=== PATIENT | male | born 1985 | race Two or more races ===

== ENCOUNTER 2020-08-07 20:29 | Emergency (ER) | payer OTHER ==
[~2020-08-07] VITALS: Ht 190.5 cm; Wt 70.0 kg
--- NOTE | 2020-08-07 20:57 | PHYS DOC ---
Past History Past Medical History: No Pertinent History Past Surgical History: No Surgical History Alcohol Use: None General Adult EDM: Chief Complaint: HEADACHE HPI: HPI: 34-year-old male presents with left-sided headache. This started around 3 hours ago while he was riding his bike. He denies any falls or trauma. He took some ibuprofen and Benadryl but it did not help. He describes it as a pressure sensation behind his left eye. He does not have a change in vision. No change in hearing. He does not frequently get headaches and when he does ibuprofen or Tylenol usually makes it go away. He does not have any other symptoms other than some chills. He denies cough, fever, runny nose. Review of Systems: Review of Systems: Constitutional: Chills Eyes: Denies change in visual acuity HENT: Denies nasal congestion or sore throat Respiratory: Denies cough or shortness of breath Cardiovascular: Denies chest pain or edema GI: Denies abdominal pain, nausea, vomiting, bloody stools or diarrhea : Denies dysuria Musculoskeletal: Denies back pain or joint pain Integument: Denies rash Neurologic: Headache. Denies focal weakness or sensory changes Endocrine: Denies polyuria or polydipsia Lymphatic: Denies swollen glands Psychiatric: Denies depression or anxiety Heart Score: Risk Factors: Risk Factors: DM, Current or recent (<one month) smoker, HTN, HLP, family history of CAD, obesity. Risk Scores: Score 0 - 3: 2.5% MACE over next 6 weeks - Discharge Home Score 4 - 6: 20.3% MACE over next 6 weeks - Admit for Clinical Observation Score 7 - 10: 72.7% MACE over next 6 weeks - Early Invasive Strategies Current Medications: Current Meds: Current Medications Medications (Trade) Dose Ordered Sig/Brian Start Time Stop Time Status Last Admin Dose Admin Diphenhydramine HCl (Benadryl) 25 mg 1X ONCE 08/07/20 21:00 08/07/20 21:01 Ketorolac Tromethamine (Toradol 15mg Vial) 15 mg 1X ONCE 08/07/20 21:00 08/07/20 21:01 Metoclopramide HCl (Reglan Vial) 10 mg 1X ONCE 08/07/20 21:00 08/07/20 21:01 Sodium Chloride 1,000 ml @ 1,000 mls/hr 1X ONCE 08/07/20 21:00 08/07/20 21:59 Allergies: Allergies: Allergies Coded Allergies Type Severity Reaction Last Updated Verified No Known Drug Allergies 08/07/20 No Physical Exam: PE: Constitutional: Well developed, well nourished, no acute distress, non-toxic appearance. [] HENT: Normocephalic, atraumatic, bilateral external ears normal, oropharynx moist, no oral exudates, nose normal. [] Eyes: PERRLA, EOMI, conjunctiva normal, no discharge. [] Neck: Normal range of motion, no tenderness, supple, no stridor. [] Cardiovascular:Heart rate regular rhythm, no murmur [] Lungs & Thorax: Bilateral breath sounds clear to auscultation [] Abdomen: Bowel sounds normal, soft, no tenderness, no masses, no pulsatile masses. [] Skin: Warm, dry, no erythema, no rash. [] Back: No tenderness, no CVA tenderness. [] Extremities: No tenderness, no cyanosis, no clubbing, ROM intact, no edema. [] Neurologic: Alert and oriented X 3, normal motor function, normal sensory function, no focal deficits noted. [] Psychologic: Affect normal, judgement normal, mood normal. [] Current Patient Data: Vital Signs: Vital Signs Date Time Temp Pulse Resp B/P (MAP) Pulse Ox O2 Delivery O2 Flow Rate FiO2 08/07/20 20:29 98.3 75 18 105/62 (76) 95 Room Air EKG: EKG: [] Radiology/Procedures: Radiology/Procedures: [] Course & Med Decision Making: Course & Med Decision Making Pertinent Labs and Imaging studies reviewed. (See chart for details) For the patient's headache I gave him 1 L normal saline, 15 mg of Toradol, 25 mg of Benadryl, and 10 mg of Reglan. Patient is a patient at the medications, he did not want a way around to see if they would work. I was busy with a critical patient so the patient decided to leave AMA. [] Dragon Disclaimer: Dragon Disclaimer: This electronic medical record was generated, in whole or in part, using a voice recognition dictation system. Departure Departure: Impression: Primary Impression: Headache Qualified Codes: R51 - Headache Disposition: AGAINST MEDICAL ADVICE Condition: STABLE Justification of Admission: Justification of Admission: Justification of Admission Dx: N/A JARVIS STEELE DO Aug 07, 2020 20:57
[2020-08-07] MEDS ORDERED: IV NORMAL SALINE 1,000ML 1,000 ML IV ONE (21:00)
[2020-08-07] MEDS ORDERED: diphenhydrAMINE 50 MG/ML VIAL IVP ONE (21:00)
[2020-08-07] MEDS ORDERED: METOCLOPRAMIDE HCL 10 MG/2 ML VIAL. IVP ONE (21:00)
[2020-08-07] MEDS ORDERED: KETOROLAC 15 MG/ML VIAL. IVP ONE (21:00)
[2020-08-07 21:43] LABS: BASO # 0.1 x10^3/uL (0.0-0.2); BASO % 1 % (0-3); EOS # 0.4 x10^3/uL (0.0-0.7); EOS % 3 % (0-3); HEMATOCRIT 46.4 % (39.0-53.0); HEMOGLOBIN 15.4 g/dL (13.0-17.5); LYMPH # 1.4 x10^3/uL (1.0-4.8); LYMPH % 10 % (24-48); MEAN CORPUSCULAR HEMOGLOBIN 31 pg (25-35); MEAN CORPUSCULAR HGB CONC 33 g/dL (31-37); MEAN CORPUSCULAR VOLUME 93 fL (79-100); MONO # 0.7 x10^3/uL (0.0-1.1); MONO % 5 % (0-9); NEUT # 11.5 x10^3uL (1.8-7.7); NEUT % 82 % (31-73); PLATELET COUNT 194 x10^3/uL (140-400); RED BLOOD COUNT 4.99 x10^6/uL (4.30-5.70); RED CELL DISTRIBUTION WIDTH 13.8 % (11.5-14.5)
[2020-08-07 21:48] VITALS: BP 113/69
[2020-08-07 21:58] LABS: CALCIUM 8.8 mg/dL (8.5-10.1); CREATININE 0.8 mg/dL (0.7-1.3); POTASSIUM 3.6 mmol/L (3.5-5.1)
[2020-08-07 22:03] LABS: ALBUMIN 4.1 g/dL (3.4-5.0); ALBUMIN/GLOBULIN RATIO 1.2 (1.0-1.7); TOTAL BILIRUBIN 0.4 mg/dL (0.2-1.0); TOTAL PROTEIN 7.4 g/dL (6.4-8.2)
== END 2020-08-07 21:49 | disposition left against medical advice (07) ==
LOC: ER 20:29
DX: R51 Headache (principal); R50.9 Fever, unspecified
CPT/HCPCS: 36415; 80053; 85025; 96374; 96375; 99284; J1200; J1885; J2765; J7030